=== PATIENT | female | born 1990 | race Caucasian/White ===

== ENCOUNTER 2019-04-24 10:34 | Observation (INO) ==
[2019-04-23] MEDS: Ringers Solution, Lactated 1,000 ML IVC ONE ×2 (17:00→17:40)
[2019-04-23] MEDS: Ringers Solution, Lactated 1,000 ML IVC SCH ×2 (17:00→18:07)
[2019-04-23 17:21] LABS: Basophils # 0.1 K/mcL (0.0-0.2); Basophils % 0.4 %; Eosinophils # 0.2 K/mcL (0.0-0.6); Eosinophils % 1.5 %; Hematocrit 33.1 % (35.3-44.9); Hemoglobin 11.1 g/dL (11.5-15.4); Immature Granulocytes % 0.3 % (0-4); Lymphocytes # 2.2 K/mcL (0.6-4.6); Lymphocytes % 15.5 %; Mean Corpuscular HGB Conc 33.5 g/dL (31.6-35.5); Mean Corpuscular Volume 86.4 fL (83.0-100.0); Mean Platelet Volume 12.1 fL (9.4-12.4); Monocytes # 0.9 K/mcL (0.0-1.3); Monocytes % 6.2 %; Neutrophils # 10.7 K/mcL (1.6-8.9); Platelet Count 282 K/mcL (140-400); Red Blood Count 3.83 M/mcL (3.82-4.97); Red Cell Distribution Width 13.1 % (11.5-14.5); Segmented Neutrophils % 76.1 %
[2019-04-24] MEDS: Ringers Solution, Lactated 1,000 ML IVC SCH ×3 (05:10→13:35)
[~2019-04-24 10:34] MED LIST: *HR* Promethazine 25 MG/ML VIAL IVP PRN; Naloxone 0.4 MG/ML INJ IVP PRN; Ondansetron 4 MG/2 ML VIAL IVP PRN; Ringers Solution, Lactated 1,000 ML ONE
[2019-04-24 15:58] LABS: Basophils # 0.1 K/mcL (0.0-0.2); Basophils % 0.6 %; Eosinophils # 0.1 K/mcL (0.0-0.6); Eosinophils % 0.9 %; Hematocrit 29.1 % (35.3-44.9); Hemoglobin 9.8 g/dL (11.5-15.4); Immature Granulocytes % 0.3 % (0-4); Lymphocytes % 20.5 %; Mean Corpuscular HGB Conc 33.7 g/dL (31.6-35.5); Mean Corpuscular Hemoglobin 29.3 pg (28.0-33.3); Mean Corpuscular Volume 87.1 fL (83.0-100.0); Mean Platelet Volume 11.4 fL (9.4-12.4); Monocytes # 0.9 K/mcL (0.0-1.3); Monocytes % 9.4 %; Neutrophils # 6.7 K/mcL (1.6-8.9); Platelet Count 272 K/mcL (140-400); Red Blood Count 3.34 M/mcL (3.82-4.97); Red Cell Distribution Width 13.2 % (11.5-14.5); Segmented Neutrophils % 68.3 %; White Blood Count 9.8 K/mcL (4.3-11.1)
[2019-04-24 16:05] LABS: Prothrombin Time 11.7 Seconds (9.4-12.1)
[2019-04-24 16:08] LABS: Activated Partial Thrombo Time 25.9 Seconds (26.0-36.0)
[2019-04-24 18:06] VITALS: BP 130/80
== END 2019-04-24 19:27 | disposition home or self-care (01) ==
LOC: 1NENUPED
PROVIDERS: ADMIT Obstetrics & Gynecology; ATTEND Obstetrics & Gynecology

== ENCOUNTER 2019-05-11 16:49 | Inpatient (IN) ==
[2019-05-11] MEDS ORDERED: 0.9 % Sodium Chloride 1,000 ML IVC ONE ×2 (17:42)
[2019-05-11 18:18] LABS: Prothrombin Time 11.1 Seconds (9.4-12.1)
[2019-05-11 18:21] LABS: Activated Partial Thrombo Time 26.1 Seconds (26.0-36.0); Basophils # 0.1 K/mcL (0.0-0.2); Basophils % 0.5 %; Eosinophils # 0.1 K/mcL (0.0-0.6); Eosinophils % 0.7 %; Hematocrit 31.5 % (35.3-44.9); Hemoglobin 11.1 g/dL (11.5-15.4); Immature Granulocytes % 0.5 % (0-4); Lymphocytes % 11.7 %; Mean Corpuscular HGB Conc 35.2 g/dL (31.6-35.5); Mean Corpuscular Hemoglobin 29.5 pg (28.0-33.3); Mean Corpuscular Volume 83.8 fL (83.0-100.0); Mean Platelet Volume 11.8 fL (9.4-12.4); Monocytes # 1.2 K/mcL (0.0-1.3); Monocytes % 7.2 %; Neutrophils # 13.3 K/mcL (1.6-8.9); Platelet Count 337 K/mcL (140-400); Red Blood Count 3.76 M/mcL (3.82-4.97); Red Cell Distribution Width 13.3 % (11.5-14.5); Segmented Neutrophils % 79.4 %; White Blood Count 16.7 K/mcL (4.3-11.1)
[2019-05-11 18:22] VITALS: BP 143/82
[2019-05-11] MEDS ORDERED: *HR* Nalbuphine 10 MG/ML AMPUL IV ONE (18:23)
[2019-05-11] MEDS ORDERED: Naloxone 0.4 MG/ML INJ IVP PRN (18:29)
[2019-05-11] MEDS ORDERED: Metoclopramide 10 MG/2 ML VIAL IVP PRN (18:29)
[2019-05-11] MEDS ORDERED: *HR* Nalbuphine 10 MG/ML AMPUL IVP PRN (18:29)
[2019-05-11] MEDS ORDERED: Lidocaine 1% 20 ML MDV INFILT PRN (18:29)
[2019-05-11] MEDS ORDERED: Famotidine 20 MG/2 ML VIAL IVP PRN (18:29)
[2019-05-11] MEDS ORDERED: Ondansetron 4 MG/2 ML VIAL IVP PRN (18:29)
[2019-05-11] MEDS ORDERED: Ringers Solution, Lactated 1,000 ML IVC SCH (18:30)
== END 2019-05-11 22:20 | disposition home or self-care (01) | DRG 807 ==
LOC: 1NENULAB 16:49 → EMEROOARM 16:49 → 1NENULAB 18:33
PROVIDERS: ADMIT Advanced Practice Midwife; ATTEND Advanced Practice Midwife